=== PATIENT | female | born 1990 | race Asian ===

== ENCOUNTER 2018-06-17 20:51 | Emergency (ER) | payer SELFPAY ==
[2018-06-17 20:56] VITALS: TEMP 98.4
--- NOTE | 2018-06-17 22:10 | NUR ---
Pt seen in the ED, non-lithuanian speaking with fire prevention specialist and at the bedside. Pt reports LMP "sometime in December" She reports she is G7 L4 with SAB x2. Pt denies any leaking of fluid, vaginal bleeding and reports no contractions. EFM and toco placed. FHR difficult to trace, frequent audible movement. EFM intermittently tracing maternal HR as coorelates with SPO2 monitor on pt. No contractions noted with toco or palpation by this RN. See FHR charting for details.
[2018-06-17 22:12] LABS: COLLECTION METHOD CLEAN CATCH
[2018-06-17 22:20] LABS: PH 7 (5-8); SQUAMOUS EPITHELIAL 0-2 /hpf; URINE APPEARANCE Clear; URINE BACTERIA None Seen /hpf; URINE BILIRUBIN Negative (NEGATIVE); URINE BLOOD Negative (NEGATIVE); URINE COLOR Colorless; URINE GLUCOSE Negative (NEGATIVE); URINE KETONE Negative (NEGATIVE); URINE LEUKOCYTE ESTERASE Negative (NEGATIVE); URINE NITRATE Negative (NEGATIVE); URINE PROTEIN(semi-quant) Negative (NEGATIVE); URINE RBC None Seen /hpf; URINE UROBILINOGEN Negative (NEGATIVE)
[2018-06-17 23:03] LABS: BASO % 0.2 % (0.0-2.0); EOS # 0.1 (0.0-0.7); EOS % 1.3 % (0-4.0); GRAN # 6.5 (1.4-6.5); GRAN % 71.8 % (42.2-75.2); HEMOGLOBIN 12.2 g/dl (12.5-16.0); LYMPH # 1.8 (1.2-3.4); LYMPH % 19.8 % (20.0-51.0); MEAN CELL VOLUME 84 fl (80.0-100.0); MEAN CORPUSCULAR HEMOGLOBIN 28 pg (27.0-31.0); MEAN CORPUSCULAR HGB CONC 34 g/dl (33.0-37.0); MEAN PLATELET VOLUME 11.1 fl (7.4-10.4); MONO # 0.6 (0.1-0.6); MONO % 6.3 % (1.7-9.3); PLATELET COUNT 252 K/mm3 (130-400); RED BLOOD COUNT 4.35 M/mm3 (4.10-5.30); REDCELL DISTRIBUTION WIDTH-CV 14.3 % (11.5-14.5)
[2018-06-17 23:12] LABS: HEMATOCRIT 36.4 % (37.0-47.0)
[2018-06-17 23:14] LABS: ALBUMIN 3.7 gm/dL (3.5-5.0); BILIRUBIN,TOTAL 0.2 mg/dL (0.0-1.0); CALCIUM 9.2 mg/dL (8.4-10.2); CREATININE, serum 0.41 mg/dL (0.52-1.25); POTASSIUM 3.9 mmol/L (3.4-5.0); TOTAL PROTEIN 7.5 gm/dL (6.4-8.2)
[2018-06-18] MEDS ORDERED: ZANTAC 150MG T150 MG PO (00:05)
[2018-06-18] MEDS ORDERED: REGLAN 10MG10 MG/TAB PO (00:05)
[2018-06-18 00:24] VITALS: BP 112/77; PULSE 75
== END 2018-06-18 00:30 | disposition home or self-care (01) ==
LOC: COL.ER 20:51
PROVIDERS: Physician Assistant
DX: O21.9 Vomiting of pregnancy, unspecified (principal); O99.612 Diseases of the digestive system complicating pregnancy, second trimester; O26.892 Other specified pregnancy related conditions, second trimester; R51 Headache; K21.9 Gastro-esophageal reflux disease without esophagitis; Z98.890 Other specified postprocedural states; Z3A.00 Weeks of gestation of pregnancy not specified

== ENCOUNTER → 2018-07-04 | Outpatient (CLI) | payer MEDICAID ==
[~2018-07-04] MED LIST: REGLAN 10MG10 MG/TAB PO; ZANTAC 150MG T150 MG PO
== END ==
LOC: COL.RAD 09:42
DX: Z34.90 Encounter for supervision of normal pregnancy, unspecified, unspecified trimester (principal); R76.11 Nonspecific reaction to tuberculin skin test without active tuberculosis; Z3A.00 Weeks of gestation of pregnancy not specified

== ENCOUNTER → 2018-07-28 | Outpatient (CLI) | payer MEDICAID | LOC: COL.LAB 14:13 | DX: Z02.89 Encounter for other administrative examinations (principal) ==